=== PATIENT | male | born 2000 | race Caucasian/White ===

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

== ENCOUNTER 2018-05-13 16:02 | Inpatient (IN) | payer MEDICAID, OTHER ==
[~2018-05-13] VITALS: Ht 170.2 cm; Wt 49.9 kg
[~2018-05-13 16:02] MED LIST changes: -BACL10TA PO; +QUET25TA PO
[2018-05-13] MEDS ORDERED: LORazepam 2 MG TABLET PO PRN (16:45)
[2018-05-13] MEDS ORDERED: HALOPERIDOL 5 MG TABLET PO PRN (16:45)
[2018-05-13 17:44] VITALS: BP 128/67
[2018-05-13 17:50] VITALS: BP 123/73
[2018-05-13] MEDS ORDERED: MAG HYDROX/AL HYDROX/SIMETH ES 30 ML SUSPENSION UDCUP PO PRN (18:45)
[2018-05-13] MEDS ORDERED: MAGNESIUM HYDROXIDE SUSPENSION 30 ML UDCUP PO PRN (18:45)
[2018-05-13] MEDS ORDERED: IBUPROFEN 600 MG TABLET PO PRN (18:45)
[2018-05-13] MEDS ORDERED: CloNIDine HCL 0.1 MG TABLET PO PRN (18:45)
[2018-05-13] MEDS ORDERED: ONDANSETRON HCL 4 MG TABLET PO PRN (18:45)
[2018-05-13] MEDS ORDERED: NICOTINE 21 MG/24 HOUR PATCH TD ONE (18:45)
[2018-05-13] MEDS ORDERED: ALBUTEROL SULFATE HFA 90 MCG/PUFF 8 GM INHALER IH PRN (18:45)
[2018-05-13] MEDS ORDERED: PETROLATUM,WHITE 71 GM JELLY TP PRN (18:45)
[2018-05-13] MEDS ORDERED: BACITRACIN 28.4 GM OINTMENT TP PRN (18:45)
[2018-05-13] MEDS ORDERED: BENZOCAINE/MENTHOL LOZENGE MM PRN (18:45)
[2018-05-13] MEDS ORDERED: LOPERAMIDE HCL 2 MG CAPSULE PO PRN (18:45)
[2018-05-13] MEDS ORDERED: ACETAMINOPHEN 325 MG TABLET PO PRN (18:45)
[2018-05-13] MEDS: ZOLPIDEM TARTRATE 10 MG TABLET PO PRN (20:45)
[2018-05-14 05:36] VITALS: BP 128/78
[2018-05-14 08:27] LABS: BASOPHILS % (AUTO) 0.9 % (0.0-2.0); EOSINOPHILS % (AUTO) 4.2 % (1.0-6.0); HEMATOCRIT 44.6 % (41-53); HEMOGLOBIN 15.3 g/dL (13.5-17.5); LYMPHOCYTES # (AUTO) 3.5 K/uL (1.0-4.8); LYMPHOCYTES % (AUTO) 51.9 % (22.0-44.0); MEAN CORPUSCULAR HEMOGLOBIN 32.9 pg (26.0-34.0); MEAN CORPUSCULAR HGB CONC 34.2 G/dL (31.0-37.0); MEAN CORPUSCULAR VOLUME 96 fL (80-100); MONOCYTES # (AUTO) 0.8 K/uL (0.1-1.0); MONOCYTES % (AUTO) 12.1 % (2.0-9.0); NEUTROPHILS # (AUTO) 2.1 K/uL (1.8-7.7); NEUTROPHILS % (AUTO) 30.9 % (40.0-70.0); PLATELET COUNT (AUTO) 324 K/uL (150-450); RED BLOOD CELL COUNT(AUTO) 4.64 MIL/uL (4.50-5.90)
[2018-05-14 08:42] VITALS: BP 119/67
[2018-05-14 08:49] LABS: HEMOGLOBIN A1C 4.8 % (4.5-6.2)
[2018-05-14] MEDS ORDERED: DOCUSATE SODIUM 100 MG CAPSULE PO SCH (09:00)
[2018-05-14] MEDS ORDERED: OMEPRAZOLE 20 MG CAPSULE PO SCH (09:00)
[2018-05-14 09:07] LABS: ALANINE AMINOTRANSFERASE 24 U/L (12-78); ALKALINE PHOSPHATASE 78 U/L (46-116); ANION GAP 9 mmol/L (8-16); ASPARTATE AMINOTRANSFERASE 19 U/L (15-37); BILIRUBIN,TOTAL 0.8 mg/dL (0.1-1.0); CALCIUM, TOTAL 8.9 mg/dL (8.8-10.5); CARBON DIOXIDE 29 mmol/L (22-29); CHLORIDE 104 mmol/L (98-107); CHOLESTEROL 157 mg/dL (131-200); CREATININE 0.74 mg/dL (0.60-1.30); FREE T4 (FREE THYROXINE) 0.97 ng/dL (0.76-1.46); GLOMERULAR FILTR. RATE CALC > 60 mL/min (>60); GLUCOSE,RANDOM 78 mg/dL (70-110); HDL CHOLESTEROL 53 mg/dL (40-60); LDL CHOL (CALC.) 92 mg/dL (0-130); POTASSIUM 4.6 mmol/L (3.5-5.1); SODIUM SERUM 142 mmol/L (136-145); THYROID STIMULATING HORMONE 1.22 uIU/mL (0.36-3.74); TOTAL PROTEIN, SERUM 6.8 g/dL (6.4-8.2); TRIGLYCERIDES 61 mg/dL (15-150); UREA NITROGEN, BLOOD 11 mg/dL (7-18)
[2018-05-14] MEDS: NICOTINE 21 MG/24 HOUR PATCH TD SCH (09:10)
[2018-05-14] MEDS: ARIPiprazole 5 MG TABLET PO SCH (11:16)
[2018-05-14 16:02] VITALS: BP 128/78
[2018-05-14] MEDS ORDERED: DOCUSATE SODIUM 100 MG CAPSULE PO PRN (20:00)
[2018-05-14] MEDS ORDERED: OMEPRAZOLE 20 MG CAPSULE PO PRN (20:00)
[2018-05-14] MEDS: MIRTAZAPINE 15 MG TABLET PO SCH (20:22)
[2018-05-15 01:03] VITALS: BP 110/63
[2018-05-15 08:06] VITALS: BP 113/60
[2018-05-15] MEDS: ARIPiprazole 5 MG TABLET PO SCH (08:49)
[2018-05-15] MEDS: NICOTINE 21 MG/24 HOUR PATCH TD SCH (08:49)
[2018-05-15 16:18] VITALS: BP 112/62
[2018-05-15] MEDS: ZOLPIDEM TARTRATE 10 MG TABLET PO PRN (20:30)
[2018-05-15] MEDS: MIRTAZAPINE 15 MG TABLET PO SCH (20:30)
[2018-05-16 00:53] VITALS: BP 118/76
[2018-05-16 08:11] VITALS: BP 115/66
[2018-05-16] MEDS: ARIPiprazole 5 MG TABLET PO SCH (08:41)
[2018-05-16] MEDS: NICOTINE 21 MG/24 HOUR PATCH TD SCH (08:42)
[2018-05-16] MEDS ORDERED: MIRT15TA6 PO (13:30)
[2018-05-16] MEDS ORDERED: ARIP5TAB19 PO (13:32)
== END 2018-05-16 18:40 | disposition home or self-care (01) | DRG 750 ==
LOC: B2S 16:36
PROVIDERS: ADMIT Psychiatry & Neurology Psychiatry; ATTEND Psychiatry & Neurology Psychiatry
DX: F25.0 Schizoaffective disorder, bipolar type (principal); R45.851 Suicidal ideations; F29 Unspecified psychosis not due to a substance or known physiological condition; F41.9 Anxiety disorder, unspecified; F19.20 Other psychoactive substance dependence, uncomplicated; G47.00 Insomnia, unspecified; K59.00 Constipation, unspecified; F60.3 Borderline personality disorder; Z59.0 Homelessness; Z81.8 Family history of other mental and behavioral disorders; Z91.5 Personal history of self-harm; Z79.899 Other long term (current) drug therapy
CPT/HCPCS: 83036; 84439; 84443; Q0162

== ENCOUNTER 2019-12-04 15:53 | Inpatient (IN) | payer MEDICAID ==
[~2019-12-04] VITALS: Ht 177.8 cm; Wt 47.2 kg
[~2019-12-04 15:53] MED LIST changes: +ARIP5TAB58 PO; +MIRT15TA6 PO; -QUET25TA PO
[2019-12-04] MEDS ORDERED: HALOPERIDOL 5 MG TABLET PO PRN (17:45)
[2019-12-04] MEDS ORDERED: ZOLPIDEM TARTRATE 10 MG TABLET PO PRN (17:45)
[2019-12-04] MEDS ORDERED: LORazepam 2 MG TABLET PO PRN (17:45)
[2019-12-04 17:53] VITALS: BP 121/86
[2019-12-04 19:48] VITALS: BP 121/71
[2019-12-05 00:17] VITALS: BP 110/68
[2019-12-05] MEDS ORDERED: ALBUTEROL SULFATE HFA 90 MCG/PUFF 8 GM INHALER IH PRN (08:15)
[2019-12-05] MEDS ORDERED: GuaiFENesin/D-METHORPHAN [SUGAR-FREE] 200-20MG/10 ML SYRUP UDCUP PO PRN (08:15)
[2019-12-05] MEDS ORDERED: LOPERAMIDE HCL 2 MG CAPSULE PO PRN (08:15)
[2019-12-05] MEDS ORDERED: IBUPROFEN 400 MG TABLET PO PRN (08:15)
[2019-12-05] MEDS ORDERED: CloNIDine HCL 0.1 MG TABLET PO PRN (08:15)
[2019-12-05] MEDS ORDERED: PETROLATUM,WHITE 28 GM JELLY TP PRN (08:15)
[2019-12-05] MEDS ORDERED: ONDANSETRON HCL 4 MG TABLET PO PRN (08:15)
[2019-12-05] MEDS ORDERED: NICOTINE 14 MG/24 HOUR PATCH TD PRN (08:15)
[2019-12-05] MEDS ORDERED: MAG HYDROX/AL HYDROX/SIMETH ES 30 ML SUSPENSION UDCUP PO PRN (08:15)
[2019-12-05] MEDS ORDERED: DOCUSATE SODIUM 100 MG CAPSULE PO PRN (08:15)
[2019-12-05] MEDS ORDERED: ACETAMINOPHEN 325 MG TABLET PO PRN (08:15)
[2019-12-05] MEDS ORDERED: MAGNESIUM HYDROXIDE SUSPENSION 30 ML UDCUP PO PRN (08:15)
[2019-12-05 08:17] LABS: BASOPHILS % (AUTO) 0.8 % (0.0-2.0); HEMOGLOBIN 14.4 g/dL (13.5-17.5); LYMPHOCYTES # (AUTO) 3.3 K/uL (1.0-4.8); LYMPHOCYTES % (AUTO) 62.1 % (22.0-44.0); MEAN CORPUSCULAR HGB CONC 34.2 G/dL (31.0-37.0); MEAN CORPUSCULAR VOLUME 96 fL (80-100); MONOCYTES # (AUTO) 0.7 K/uL (0.1-1.0); NEUTROPHILS % (AUTO) 19.1 % (40.0-70.0); PLATELET COUNT (AUTO) 334 K/uL (150-450); RED BLOOD CELL COUNT(AUTO) 4.37 MIL/uL (4.50-5.90); RED CELL DISTRIBUTION WIDTH 12.8 % (11.5-14.5)
[2019-12-05 08:56] VITALS: BP 102/53
[2019-12-05] MEDS: NICOTINE 21 MG/24 HOUR PATCH TD SCH (08:58)
[2019-12-05] MEDS: BACITRACIN 28.4 GM OINTMENT TP SCH ×2 (08:58→16:14)
[2019-12-05 09:15] LABS: ALANINE AMINOTRANSFERASE 27 U/L (12-78); ALKALINE PHOSPHATASE 67 U/L (46-116); ANION GAP 11 mmol/L (8-16); ASPARTATE AMINOTRANSFERASE 17 U/L (15-37); BILIRUBIN,TOTAL 0.8 mg/dL (0.1-1.0); CALCIUM, TOTAL 8.6 mg/dL (8.8-10.5); CARBON DIOXIDE 24 mmol/L (22-29); CHLORIDE 106 mmol/L (98-107); CHOL/HDL RATIO 2.6 (4.2-7.3); CHOLESTEROL 148 mg/dL (131-200); CREATININE 0.69 mg/dL (0.60-1.30); FREE T4 (FREE THYROXINE) 1.16 ng/dL (0.76-1.46); GLOMERULAR FILTR. RATE CALC > 60 mL/min (>60); GLUCOSE,RANDOM 81 mg/dL (70-110); HDL CHOLESTEROL 56 mg/dL (40-60); LDL CHOL (CALC.) 81 mg/dL (0-130); POTASSIUM 3.9 mmol/L (3.5-5.1); SODIUM SERUM 141 mmol/L (136-145); THYROID STIMULATING HORMONE 0.81 uIU/mL (0.36-3.74); TOTAL PROTEIN, SERUM 6.9 g/dL (6.4-8.2); TRIGLYCERIDES 57 mg/dL (15-150); UREA NITROGEN, BLOOD 14 mg/dL (7-18)
[2019-12-05] MEDS: SERTRALINE HCL 50 MG TABLET PO SCH (12:37)
[2019-12-05 17:53] VITALS: BP 107/71
[2019-12-05] MEDS: QUEtiapine FUMARATE 100 MG TABLET PO SCH (20:10)
[2019-12-06 03:00] VITALS: BP 107/71
[2019-12-06] MEDS: BACITRACIN 28.4 GM OINTMENT TP SCH ×2 (08:39→16:06)
[2019-12-06] MEDS: SERTRALINE HCL 50 MG TABLET PO SCH (08:39)
[2019-12-06] MEDS: NICOTINE 21 MG/24 HOUR PATCH TD SCH ×2 (08:39→08:46)
[2019-12-06 08:40] VITALS: BP 101/58
[2019-12-06 16:11] VITALS: BP 100/61
[2019-12-06] MEDS: QUEtiapine FUMARATE 100 MG TABLET PO SCH (20:21)
[2019-12-07 07:07] VITALS: BP 102/48
[2019-12-07 08:12] VITALS: BP 115/52
[2019-12-07] MEDS: NICOTINE 21 MG/24 HOUR PATCH TD SCH (09:00)
[2019-12-07] MEDS: SERTRALINE HCL 50 MG TABLET PO SCH (09:05)
[2019-12-07] MEDS: BACITRACIN 28.4 GM OINTMENT TP SCH ×2 (09:05→16:11)
[2019-12-07] MEDS: QUEtiapine FUMARATE 100 MG TABLET PO SCH (20:22)
[2019-12-08 05:30] VITALS: BP 100/63
[2019-12-08] MEDS: SERTRALINE HCL 50 MG TABLET PO SCH (08:33)
[2019-12-08] MEDS: NICOTINE 21 MG/24 HOUR PATCH TD SCH (08:35)
[2019-12-08] MEDS: BACITRACIN 28.4 GM OINTMENT TP SCH ×2 (08:55→17:10)
[2019-12-08 09:35] VITALS: BP 100/65
[2019-12-08 17:41] VITALS: BP 118/65
[2019-12-08] MEDS: QUEtiapine FUMARATE 100 MG TABLET PO SCH (21:05)
[2019-12-09 05:55] VITALS: BP 111/60
[2019-12-09] MEDS: BACITRACIN 28.4 GM OINTMENT TP SCH ×2 (09:00→17:09)
[2019-12-09 09:01] VITALS: BP 117/63
[2019-12-09] MEDS: SERTRALINE HCL 50 MG TABLET PO SCH (09:02)
[2019-12-09] MEDS: NICOTINE 21 MG/24 HOUR PATCH TD SCH (09:05)
[2019-12-09 17:14] VITALS: BP 124/60
[2019-12-09] MEDS: QUEtiapine FUMARATE 100 MG TABLET PO SCH (20:09)
[2019-12-10 00:28] VITALS: BP 105/42
[2019-12-10] MEDS: NICOTINE 21 MG/24 HOUR PATCH TD SCH (08:43)
[2019-12-10] MEDS: SERTRALINE HCL 50 MG TABLET PO SCH (08:43)
[2019-12-10] MEDS: BACITRACIN 28.4 GM OINTMENT TP SCH ×2 (08:49→16:48)
[2019-12-10 09:09] VITALS: BP 110/78
[2019-12-10 16:51] VITALS: BP 114/79
[2019-12-10] MEDS: QUEtiapine FUMARATE 100 MG TABLET PO SCH (20:10)
[2019-12-11 01:42] VITALS: BP 103/62
[2019-12-11 08:09] VITALS: BP 111/53
[2019-12-11] MEDS: NICOTINE 21 MG/24 HOUR PATCH TD SCH (08:37)
[2019-12-11] MEDS: BACITRACIN 28.4 GM OINTMENT TP SCH ×2 (08:37→18:53)
[2019-12-11] MEDS: SERTRALINE HCL 50 MG TABLET PO SCH (08:37)
[2019-12-11 16:48] VITALS: BP 107/59
[2019-12-11] MEDS: QUEtiapine FUMARATE 100 MG TABLET PO SCH (20:20)
[2019-12-12] VITALS: BP 114/46
[2019-12-12 08:11] VITALS: BP 132/71
[2019-12-12] MEDS: SERTRALINE HCL 50 MG TABLET PO SCH (08:27)
[2019-12-12] MEDS: NICOTINE 21 MG/24 HOUR PATCH TD SCH (08:27)
[2019-12-12] MEDS: BACITRACIN 28.4 GM OINTMENT TP SCH ×2 (08:27→16:14)
[2019-12-12 17:59] VITALS: BP 135/81
[2019-12-12] MEDS: QUEtiapine FUMARATE 100 MG TABLET PO SCH (20:13)
[2019-12-13 06:06] VITALS: BP 130/79
[2019-12-13 08:29] VITALS: BP 130/65
[2019-12-13] MEDS: SERTRALINE HCL 50 MG TABLET PO SCH (08:42)
[2019-12-13] MEDS: BACITRACIN 28.4 GM OINTMENT TP SCH (08:43)
[2019-12-13] MEDS: NICOTINE 21 MG/24 HOUR PATCH TD SCH (08:43)
[2019-12-13] MEDS ORDERED: QUET100T33 PO (11:23)
[2019-12-13] MEDS ORDERED: SERT50TA12 PO (11:23)
== END 2019-12-13 13:30 | disposition home or self-care (01) | DRG 750 ==
LOC: B2S 17:57
PROVIDERS: ADMIT Psychiatry & Neurology Child & Adolescent Psychiatry; ATTEND Psychiatry & Neurology Child & Adolescent Psychiatry
DX: F25.1 Schizoaffective disorder, depressive type (principal); I95.9 Hypotension, unspecified; R45.851 Suicidal ideations; F10.10 Alcohol abuse, uncomplicated; F15.10 Other stimulant abuse, uncomplicated; F41.9 Anxiety disorder, unspecified; X58.XXXA Exposure to other specified factors, initial encounter; G47.00 Insomnia, unspecified; K59.00 Constipation, unspecified; S00.81XA Abrasion of other part of head, initial encounter; Z79.899 Other long term (current) drug therapy; Z59.0 Homelessness; Z87.891 Personal history of nicotine dependence; Z90.5 Acquired absence of kidney; Y93.89 Activity, other specified; Y92.89 Other specified places as the place of occurrence of the external cause; Y99.8 Other external cause status
CPT/HCPCS: 84439; 84443

== ENCOUNTER 2020-02-05 16:24 | Inpatient (IN) | payer MEDICAID ==
[~2020-02-05] VITALS: Ht 167.6 cm; Wt 49.9 kg
[~2020-02-05 16:24] MED LIST changes: -ARIP5TAB58 PO; -MIRT15TA6 PO; +QUET100T33 PO; +SERT50TA12 PO
[2020-02-05] MEDS ORDERED: SERT50TA12 PO (16:30)
[2020-02-05] MEDS ORDERED: QUET100T PO (16:30)
[2020-02-05] MEDS ORDERED: OLANZapine 5 MG RAPDIS TABLET PO PRN (17:15)
[2020-02-05] MEDS ORDERED: LORazepam 2 MG TABLET PO PRN (17:15)
[2020-02-05] MEDS ORDERED: MAG HYDROX/AL HYDROX/SIMETH ES 30 ML SUSPENSION UDCUP PO PRN (17:15)
[2020-02-05] MEDS ORDERED: PROMETHAZINE HCL 25 MG TABLET PO PRN (17:15)
[2020-02-05] MEDS ORDERED: LOPERAMIDE HCL 2 MG CAPSULE PO PRN (17:15)
[2020-02-05] MEDS ORDERED: ACETAMINOPHEN 325 MG TABLET PO PRN (17:15)
[2020-02-05] MEDS ORDERED: GuaiFENesin/D-METHORPHAN [SUGAR-FREE] 200-20MG/10 ML SYRUP UDCUP PO PRN (17:15)
[2020-02-05] MEDS ORDERED: HydrOXYzine PAMOATE 50 MG CAPSULE PO PRN (17:15)
[2020-02-05] MEDS ORDERED: MAGNESIUM HYDROXIDE SUSPENSION 30 ML UDCUP PO PRN (17:15)
[2020-02-05] MEDS ORDERED: TUBERCULIN, PURIFIED PROTEIN DERIVATIVE 5 TU/0.1 ML SYRINGE ID ONE (17:15)
[2020-02-05 17:39] VITALS: BP 125/78
[2020-02-05] MEDS: THIAMINE 100 MG TABLET PO SCH (18:10)
[2020-02-05] MEDS: ZOLPIDEM TARTRATE 10 MG TABLET PO PRN (20:11)
[2020-02-05] MEDS: OLANZapine 5 MG RAPDIS TABLET PO SCH (20:11)
[2020-02-06 03:56] VITALS: BP 120/76
[2020-02-06 07:55] LABS: BASOPHILS % (AUTO) 0.9 % (0.0-2.0); EOSINOPHILS % (AUTO) 2.7 % (1.0-6.0); HEMATOCRIT 44.5 % (41-53); HEMOGLOBIN 14.7 g/dL (13.5-17.5); LYMPHOCYTES # (AUTO) 2.9 K/uL (1.0-4.8); LYMPHOCYTES % (AUTO) 57.6 % (22.0-44.0); MEAN CORPUSCULAR HEMOGLOBIN 31.6 pg (26.0-34.0); MEAN CORPUSCULAR VOLUME 96 fL (80-100); MONOCYTES # (AUTO) 0.4 K/uL (0.1-1.0); MONOCYTES % (AUTO) 8.5 % (2.0-9.0); NEUTROPHILS # (AUTO) 1.5 K/uL (1.8-7.7); NEUTROPHILS % (AUTO) 30.3 % (40.0-70.0); PLATELET COUNT (AUTO) 365 K/uL (150-450); RED BLOOD CELL COUNT(AUTO) 4.64 MIL/uL (4.50-5.90); RED CELL DISTRIBUTION WIDTH 12.7 % (11.5-14.5)
[2020-02-06 08:16] LABS: ALANINE AMINOTRANSFERASE 28 U/L (12-78); ALBUMIN 3.7 g/dL (3.4-5.0); ALKALINE PHOSPHATASE 67 U/L (46-116); ANION GAP 10 mmol/L (8-16); ASPARTATE AMINOTRANSFERASE 13 U/L (15-37); BILIRUBIN,TOTAL 0.2 mg/dL (0.1-1.0); CALCIUM, TOTAL 8.8 mg/dL (8.8-10.5); CARBON DIOXIDE 26 mmol/L (22-29); CHLORIDE 107 mmol/L (98-107); CHOL/HDL RATIO 2.7 (4.2-7.3); CHOLESTEROL 151 mg/dL (131-200); CREATININE 0.63 mg/dL (0.60-1.30); FREE T4 (FREE THYROXINE) 1.13 ng/dL (0.76-1.46); GLOMERULAR FILTR. RATE CALC > 60 mL/min (>60); GLUCOSE,RANDOM 93 mg/dL (70-110); HCG,QUANTITATIVE < 1 mIU/mL (0-6); HDL CHOLESTEROL 56 mg/dL (40-60); LDL CHOL (CALC.) 82 mg/dL (0-130); POTASSIUM 3.8 mmol/L (3.5-5.1); SODIUM SERUM 143 mmol/L (136-145); THYROID STIMULATING HORMONE 2.14 uIU/mL (0.36-3.74); TRIGLYCERIDES 66 mg/dL (15-150); UREA NITROGEN, BLOOD 14 mg/dL (7-18)
[2020-02-06 08:23] LABS: HEMOGLOBIN A1C 4.9 % (3.8-5.6)
[2020-02-06] MEDS: FLUoxetine HCL 20 MG CAPSULE PO SCH (08:34)
[2020-02-06] MEDS: NALTREXONE HCL 50 MG TABLET PO SCH (08:34)
[2020-02-06] MEDS: THIAMINE 100 MG TABLET PO SCH ×2 (08:34→16:17)
[2020-02-06] MEDS: FOLIC ACID 1 MG TABLET PO SCH (08:34)
[2020-02-06] MEDS: MULTIVITAMINS WITH MINERALS, THERAPEUTIC TABLET PO SCH (08:34)
[2020-02-06 08:48] VITALS: BP 126/59
[2020-02-06 16:11] VITALS: BP 122/70
[2020-02-06] MEDS: OLANZapine 5 MG RAPDIS TABLET PO SCH (20:17)
[2020-02-07 00:34] VITALS: BP 124/72
[2020-02-07] MEDS: FOLIC ACID 1 MG TABLET PO SCH (08:50)
[2020-02-07] MEDS: MULTIVITAMINS WITH MINERALS, THERAPEUTIC TABLET PO SCH (08:50)
[2020-02-07] MEDS: FLUoxetine HCL 20 MG CAPSULE PO SCH (08:50)
[2020-02-07] MEDS: THIAMINE 100 MG TABLET PO SCH ×2 (08:50→16:14)
[2020-02-07] MEDS: NALTREXONE HCL 50 MG TABLET PO SCH (08:50)
[2020-02-07 09:49] VITALS: BP 106/44
[2020-02-07 18:35] VITALS: BP 119/73
[2020-02-07] MEDS: OLANZapine 5 MG RAPDIS TABLET PO SCH (20:51)
[2020-02-08 04:38] VITALS: BP 116/70
[2020-02-08 08:11] VITALS: BP 113/60
[2020-02-08] MEDS: FOLIC ACID 1 MG TABLET PO SCH (08:50)
[2020-02-08] MEDS: THIAMINE 100 MG TABLET PO SCH ×2 (08:50→16:30)
[2020-02-08] MEDS: MULTIVITAMINS WITH MINERALS, THERAPEUTIC TABLET PO SCH (08:50)
[2020-02-08] MEDS: NALTREXONE HCL 50 MG TABLET PO SCH (08:51)
[2020-02-08] MEDS: FLUoxetine HCL 20 MG CAPSULE PO SCH (08:51)
[2020-02-08 16:11] VITALS: BP 117/72
[2020-02-08] MEDS: ZOLPIDEM TARTRATE 10 MG TABLET PO PRN (20:34)
[2020-02-08] MEDS: OLANZapine 5 MG RAPDIS TABLET PO SCH (20:34)
[2020-02-09 05:41] VITALS: BP 103/60
[2020-02-09 08:14] VITALS: BP 114/69
[2020-02-09] MEDS: FLUoxetine HCL 20 MG CAPSULE PO SCH (09:29)
[2020-02-09] MEDS: THIAMINE 100 MG TABLET PO SCH ×2 (09:29→16:42)
[2020-02-09] MEDS: FOLIC ACID 1 MG TABLET PO SCH (09:29)
[2020-02-09] MEDS: MULTIVITAMINS WITH MINERALS, THERAPEUTIC TABLET PO SCH (09:29)
[2020-02-09] MEDS: NALTREXONE HCL 50 MG TABLET PO SCH (09:29)
[2020-02-09] MEDS ORDERED: NALT50TA PO (13:41)
[2020-02-09] MEDS ORDERED: FLUO-191 PO (13:41)
[2020-02-09] MEDS ORDERED: OLAN5TAB30 PO (13:41)
[2020-02-09] MEDS ORDERED: OLAN10TA22 PO (16:13)
[2020-02-09 16:14] VITALS: BP 113/66
[2020-02-09] MEDS ORDERED: LORazepam 0.5 MG TABLET PO PRN (17:15)
[2020-02-09] MEDS ORDERED: OLANZapine 10 MG RAPDIS TABLET PO SCH (21:00)
[2020-02-10 06:01] VITALS: BP 116/65
[2020-02-10] MEDS: MULTIVITAMINS WITH MINERALS, THERAPEUTIC TABLET PO SCH (07:57)
[2020-02-10] MEDS: FLUoxetine HCL 20 MG CAPSULE PO SCH (07:57)
[2020-02-10] MEDS: THIAMINE 100 MG TABLET PO SCH (07:57)
[2020-02-10] MEDS: NALTREXONE HCL 50 MG TABLET PO SCH (07:57)
[2020-02-10] MEDS: FOLIC ACID 1 MG TABLET PO SCH (07:57)
[2020-02-10 08:29] VITALS: BP 116/67
== END 2020-02-10 11:20 | disposition home or self-care (01) | DRG 885 ==
LOC: B3A 17:40
PROVIDERS: ADMIT Psychiatry & Neurology Psychiatry; ATTEND Psychiatry & Neurology Psychiatry
DX: F20.9 Schizophrenia, unspecified (principal); Z87.891 Personal history of nicotine dependence; Z91.14 Patient's other noncompliance with medication regimen; Z79.899 Other long term (current) drug therapy
CPT/HCPCS: 83036; 84439; 84443; 86592

== ENCOUNTER 2020-11-22 03:46 | Inpatient (IN) | payer MEDICAID ==
[~2020-11-22] VITALS: Ht 175.3 cm; Wt 61.4 kg
[~2020-11-22 03:46] MED LIST changes: +FLUO-191 PO; +NALT50TA PO; +OLAN10TA22 PO; -QUET100T33 PO; -SERT50TA12 PO
[2020-11-22 04:25] LABS: BASOPHILS % (AUTO) 0.7 % (0.0-2.0); EOSINOPHILS % (AUTO) 0.1 % (1.0-6.0); HEMATOCRIT 44.9 % (41-53); HEMOGLOBIN 15.2 g/dL (13.5-17.5); LYMPHOCYTES % (AUTO) 25.3 % (22.0-44.0); MEAN CORPUSCULAR HGB CONC 33.7 G/dL (31.0-37.0); MEAN CORPUSCULAR VOLUME 95 fL (80-100); MONOCYTES # (AUTO) 0.7 K/uL (0.1-1.0); MONOCYTES % (AUTO) 8.3 % (2.0-9.0); NEUTROPHILS # (AUTO) 5.2 K/uL (1.8-7.7); NEUTROPHILS % (AUTO) 65.6 % (40.0-70.0); PLATELET COUNT (AUTO) 358 K/uL (150-450); RED BLOOD CELL COUNT(AUTO) 4.73 MIL/uL (4.50-5.90); RED CELL DISTRIBUTION WIDTH 12.6 % (11.5-14.5)
[2020-11-22 04:33] LABS: ANION GAP 11 mmol/L (8-16); CALCIUM, TOTAL 9.2 mg/dL (8.8-10.5); CARBON DIOXIDE 27 mmol/L (22-29); CHLORIDE 104 mmol/L (98-107); CREATININE 0.76 mg/dL (0.60-1.30); GLOMERULAR FILTR. RATE CALC > 60 mL/min (>60); GLUCOSE,RANDOM 94 mg/dL (70-110); POTASSIUM 3.6 mmol/L (3.5-5.1); SODIUM SERUM 142 mmol/L (136-145); UREA NITROGEN, BLOOD 13 mg/dL (7-18)
[2020-11-22 04:39] LABS: ALANINE AMINOTRANSFERASE 48 U/L (12-78); ALBUMIN 4.6 g/dL (3.4-5.0); ALKALINE PHOSPHATASE 82 U/L (46-116); ASPARTATE AMINOTRANSFERASE 26 U/L (15-37); BILIRUBIN,TOTAL 0.5 mg/dL (0.1-1.0); TOTAL PROTEIN, SERUM 7.5 g/dL (6.4-8.2)
[2020-11-22 06:54] LABS: COVID AG,FIA SOURCE NASOPHARYNGEAL
[2020-11-22 08:12] LABS: AMPHET/METH SCREEN,URINE POSITIVE (NEGATIVE); BARBITURATE SCREEN, URINE NEGATIVE (NEGATIVE); BENZODIAZEPINES SCREEN,URINE NEGATIVE (NEGATIVE); CANNABINOID SCREEN,URINE NEGATIVE (NEGATIVE); COCAINE SCREEN,URINE NEGATIVE (NEGATIVE); METHADONE SCREEN, URINE NEGATIVE (NEGATIVE); OPIATE SCREEN,URINE NEGATIVE (NEGATIVE)
[2020-11-22 08:20] LABS: PHENCYCLIDINE SCREEN,URINE NEGATIVE (NEGATIVE)
[2020-11-22] MEDS ORDERED: ZOLPIDEM TARTRATE 10 MG TABLET PO PRN (08:45)
[2020-11-22] MEDS ORDERED: LORazepam 2 MG TABLET PO PRN (08:45)
[2020-11-22] MEDS ORDERED: HydrOXYzine PAMOATE 50 MG CAPSULE PO PRN (08:45)
[2020-11-22] MEDS ORDERED: PROMETHAZINE HCL 25 MG TABLET PO PRN (08:45)
[2020-11-22] MEDS ORDERED: LOPERAMIDE HCL 2 MG CAPSULE PO PRN (08:45)
[2020-11-22] MEDS ORDERED: MAG HYDROX/AL HYDROX/SIMETH ES 30 ML SUSPENSION UDCUP PO PRN (08:45)
[2020-11-22] MEDS ORDERED: GuaiFENesin/D-METHORPHAN [SUGAR-FREE] 200-20MG/10 ML SYRUP UDCUP PO PRN (08:45)
[2020-11-22] MEDS ORDERED: OLANZapine 5 MG RAPDIS TABLET PO PRN (08:45)
[2020-11-22] MEDS ORDERED: ACETAMINOPHEN 325 MG TABLET PO PRN (08:45)
[2020-11-22] MEDS ORDERED: MAGNESIUM HYDROXIDE SUSPENSION 30 ML UDCUP PO PRN (08:45)
[2020-11-22] MEDS ORDERED: FLUoxetine HCL 20 MG CAPSULE PO SCH (12:30)
[2020-11-22] MEDS: OMEGA-3/DHA/EPA/FISH OIL 1,000 MG CAPSULE PO SCH (12:56)
[2020-11-22] MEDS: FOLIC ACID 1 MG TABLET PO SCH (12:56)
[2020-11-22] MEDS: MULTIVITAMINS WITH MINERALS, THERAPEUTIC TABLET PO SCH (12:57)
[2020-11-22] MEDS: NALTREXONE HCL 50 MG TABLET PO SCH (12:57)
[2020-11-22] MEDS: THIAMINE 100 MG TABLET PO SCH ×2 (12:57→17:15)
[2020-11-22] MEDS ORDERED: LORazepam 2 MG/ML VIAL ONE (13:58)
[2020-11-22] MEDS ORDERED: DiphenhydrAMINE HCL 50 MG/ML VIAL ONE (13:59)
[2020-11-22] MEDS ORDERED: DiphenhydrAMINE HCL 50 MG/ML VIAL IM ONE (14:00)
[2020-11-22] MEDS ORDERED: HALOPERIDOL LACTATE 5 MG/ML VIAL IM ONE (14:00)
[2020-11-22] MEDS ORDERED: LORazepam 2 MG/ML VIAL IM ONE (14:00)
[2020-11-22] MEDS: OLANZapine 5 MG RAPDIS TABLET PO SCH ×2 (21:00→21:22)
[2020-11-22] MEDS: MELATONIN 5 MG TABLET PO SCH ×2 (21:00→21:22)
[2020-11-22 21:20] VITALS: BP 101/60
[2020-11-23 04:02] VITALS: BP 110/62
[2020-11-23] MEDS: THIAMINE 100 MG TABLET PO SCH ×2 (08:48→16:16)
[2020-11-23] MEDS: MULTIVITAMINS WITH MINERALS, THERAPEUTIC TABLET PO SCH (08:48)
[2020-11-23] MEDS: NALTREXONE HCL 50 MG TABLET PO SCH (08:48)
[2020-11-23] MEDS: FOLIC ACID 1 MG TABLET PO SCH (08:49)
[2020-11-23] MEDS: OMEGA-3/DHA/EPA/FISH OIL 1,000 MG CAPSULE PO SCH (08:49)
[2020-11-23 16:14] VITALS: BP 107/64
[2020-11-23] MEDS: OLANZapine 10 MG RAPDIS TABLET PO SCH (21:00)
[2020-11-23] MEDS: MELATONIN 5 MG TABLET PO SCH (21:01)
[2020-11-24 05:42] VITALS: BP 121/65
[2020-11-24] MEDS: FOLIC ACID 1 MG TABLET PO SCH (09:00)
[2020-11-24] MEDS: OMEGA-3/DHA/EPA/FISH OIL 1,000 MG CAPSULE PO SCH (09:00)
[2020-11-24] MEDS: MULTIVITAMINS WITH MINERALS, THERAPEUTIC TABLET PO SCH (09:00)
[2020-11-24] MEDS: THIAMINE 100 MG TABLET PO SCH ×2 (09:00→16:54)
[2020-11-24] MEDS: NALTREXONE HCL 50 MG TABLET PO SCH (09:00)
[2020-11-24 18:02] VITALS: BP 127/77
[2020-11-24] MEDS: OLANZapine 10 MG RAPDIS TABLET PO SCH (21:00)
[2020-11-24] MEDS: MELATONIN 5 MG TABLET PO SCH (21:00)
[2020-11-25 03:46] VITALS: BP 125/80
[2020-11-25 08:26] VITALS: BP 117/73
[2020-11-25] MEDS: THIAMINE 100 MG TABLET PO SCH ×2 (09:00→16:08)
[2020-11-25] MEDS: MULTIVITAMINS WITH MINERALS, THERAPEUTIC TABLET PO SCH (09:00)
[2020-11-25] MEDS: NALTREXONE HCL 50 MG TABLET PO SCH (09:00)
[2020-11-25] MEDS: FOLIC ACID 1 MG TABLET PO SCH (09:00)
[2020-11-25] MEDS: OMEGA-3/DHA/EPA/FISH OIL 1,000 MG CAPSULE PO SCH (09:00)
[2020-11-25] MEDS ORDERED: PALIPERIDONE PALMITATE 234 MG/1.5 ML SYRINGE IM ONE (13:15)
[2020-11-25] MEDS ORDERED: MELA5TAB3 PO (13:19)
[2020-11-25] MEDS ORDERED: NALT50TA PO (13:19)
[2020-11-25] MEDS ORDERED: PALI156D IM (13:19)
[2020-11-25] MEDS ORDERED: OMEG-135 PO (13:19)
[2020-11-25 16:31] VITALS: BP 114/68
[2020-11-29] MEDS ORDERED: PALIPERIDONE PALMITATE 156 MG/ML SYRINGE IM ONE (09:00)
== END 2020-11-25 18:20 | disposition home or self-care (01) | DRG 750 ==
LOC: EMS 03:47 → B2S 12:10 → B3A 13:30
PROVIDERS: ADMIT Psychiatry & Neurology Psychiatry; ATTEND Psychiatry & Neurology Psychiatry
DX: F25.9 Schizoaffective disorder, unspecified (principal); R45.851 Suicidal ideations; Z91.14 Patient's other noncompliance with medication regimen; F17.210 Nicotine dependence, cigarettes, uncomplicated; Z91.19 Patient's noncompliance with other medical treatment and regimen; J45.909 Unspecified asthma, uncomplicated; F19.10 Other psychoactive substance abuse, uncomplicated; F31.9 Bipolar disorder, unspecified; F12.90 Cannabis use, unspecified, uncomplicated; F15.90 Other stimulant use, unspecified, uncomplicated; Z91.5 Personal history of self-harm; Z20.822 Contact with and (suspected) exposure to COVID-19
CPT/HCPCS: 80053; 85025; 87426; 99285; A9575; G0480; J1200; J1630; J2060

== ENCOUNTER 2023-03-19 12:31 | Inpatient (IN) | payer MEDICAID, OTHER ==
[~2023-03-19] VITALS: Ht 170.2 cm; Wt 51.0 kg
[~2023-03-19 12:31] MED LIST changes: +ACET-784 PO; +FAMO20 PO; -FLUO-191 PO; +MAGN-169 PO; -NALT50TA PO; -OLAN10TA22 PO
[2023-03-19 12:53] LABS: BASOPHILS % (AUTO) 0.7 % (0.0-2.0); EOSINOPHILS % (AUTO) 0.3 % (1.0-6.0); HEMATOCRIT 37.6 % (41-53); HEMOGLOBIN 12.7 g/dL (13.5-17.5); LYMPHOCYTES # (AUTO) 1.3 K/uL (1.0-4.8); LYMPHOCYTES % (AUTO) 11.4 % (22.0-44.0); MEAN CORPUSCULAR HGB CONC 33.9 G/dL (31.0-37.0); MEAN CORPUSCULAR VOLUME 95 fL (80-100); MONOCYTES # (AUTO) 1.2 K/uL (0.1-1.0); MONOCYTES % (AUTO) 10.8 % (2.0-9.0); NEUTROPHILS # (AUTO) 8.8 K/uL (1.8-7.7); NEUTROPHILS % (AUTO) 76.8 % (40.0-70.0); PLATELET COUNT (AUTO) 321 K/uL (150-450); RED BLOOD CELL COUNT(AUTO) 3.98 MIL/uL (4.50-5.90); RED CELL DISTRIBUTION WIDTH 13.8 % (11.5-14.5); WHITE BLOOD COUNT (AUTO) 11.4 K/uL (4.5-11.0)
[2023-03-19 13:06] LABS: ANION GAP 12 mmol/L (8-16); CALCIUM, TOTAL 8.1 mg/dL (8.8-10.5); CARBON DIOXIDE 24 mmol/L (22-29); CHLORIDE 107 mmol/L (98-107); CREATININE 0.92 mg/dL (0.60-1.30); GLOMERULAR FILTR. RATE CALC > 60 mL/min (>60); GLUCOSE,RANDOM 100 mg/dL (70-110); POTASSIUM 3.2 mmol/L (3.5-5.1); SODIUM SERUM 143 mmol/L (136-145); UREA NITROGEN, BLOOD 15 mg/dL (7-18)
[2023-03-19 13:12] LABS: ALANINE AMINOTRANSFERASE 39 U/L (12-78); ALBUMIN 3.5 g/dL (3.4-5.0); ALKALINE PHOSPHATASE 75 U/L (46-116); ASPARTATE AMINOTRANSFERASE 46 U/L (15-37); BILIRUBIN,TOTAL 0.5 mg/dL (0.1-1.0); TOTAL PROTEIN, SERUM 6.7 g/dL (6.4-8.2)
[2023-03-19 13:17] LABS: ALCOHOL, BLOOD (SERUM) < 3 mg/dL (0-10)
[2023-03-19] MEDS ORDERED: POTASSIUM CHLORIDE 20 MEQ ER TABLET PO ONE (13:30)
[2023-03-19] MEDS ORDERED: LORazepam 1 MG TABLET PO ONE (13:30)
[2023-03-19 13:34] LABS: COVID AG,FIA SOURCE NASOPHARYNGEAL
[2023-03-19] MEDS ORDERED: OLANZapine 5 MG RAPDIS TABLET PO PRN (13:45)
[2023-03-19] MEDS ORDERED: LORazepam 2 MG TABLET PO PRN (13:45)
[2023-03-19] MEDS ORDERED: ZOLPIDEM TARTRATE 10 MG TABLET PO PRN (13:45)
[2023-03-19 14:04] LABS: SARS-COV2 (COVID) ANTIGEN,FIA Negative (Negative)
[2023-03-19 18:06] VITALS: BP 105/59; PULSE 73; RESP 19; TEMP 98.5; O2SAT 98
[2023-03-19 21:29] VITALS: RESP 18
[2023-03-19] MEDS ORDERED: MAG HYDROX/AL HYDROX/SIMETH ES 30 ML SUSPENSION UDCUP PO PRN (22:15)
[2023-03-19] MEDS ORDERED: GuaiFENesin/D-METHORPHAN [SUGAR-FREE] 200-20MG/10 ML SYRUP UDCUP PO PRN (22:15)
[2023-03-19] MEDS ORDERED: PROMETHAZINE HCL 25 MG TABLET PO PRN (22:15)
[2023-03-19] MEDS ORDERED: ACETAMINOPHEN 325 MG TABLET PO PRN (22:15)
[2023-03-19] MEDS ORDERED: LOPERAMIDE HCL 2 MG CAPSULE PO PRN (22:15)
[2023-03-19] MEDS ORDERED: MAGNESIUM HYDROXIDE SUSPENSION 30 ML UDCUP PO PRN (22:15)
[2023-03-19] MEDS ORDERED: TUBERCULIN, PURIFIED PROTEIN DERIVATIVE 5 TU/0.1 ML SYRINGE ID ONE (22:15)
[2023-03-19] MEDS ORDERED: HydrOXYzine PAMOATE 50 MG CAPSULE PO PRN (22:15)
[2023-03-20 08:00] VITALS: BP 124/81; PULSE 82; RESP 19; TEMP 98.5; O2SAT 96
[2023-03-20 08:43] LABS: HEMOGLOBIN A1C 4.8 % (3.8-5.6)
[2023-03-20 08:53] LABS: CHOL/HDL RATIO 2.3 (4.2-7.3); FREE T4 (FREE THYROXINE) 1.06 ng/dL (0.76-1.46); THYROID STIMULATING HORMONE 0.28 uIU/mL (0.36-3.74)
[2023-03-20] MEDS ORDERED: PALIPERIDONE PALMITATE 234 MG/1.5 ML SYRINGE IM ONE (09:00)
[2023-03-20] MEDS: FOLIC ACID 1 MG TABLET PO SCH (12:50)
[2023-03-20] MEDS: THIAMINE 100 MG TABLET PO SCH ×2 (12:50→17:14)
[2023-03-20] MEDS: NALTREXONE HCL 50 MG TABLET PO SCH (12:50)
[2023-03-20] MEDS: OMEGA-3/DHA/EPA/FISH OIL 1,000 MG CAPSULE PO SCH (12:50)
[2023-03-20] MEDS: OLANZapine 5 MG RAPDIS TABLET PO SCH ×3 (12:51→17:14)
[2023-03-20] MEDS: MULTIVITAMINS WITH MINERALS, THERAPEUTIC TABLET PO SCH (12:52)
[2023-03-20] MEDS: MELATONIN 5 MG TABLET PO SCH (20:58)
[2023-03-20] MEDS: DIVALPROEX SODIUM 500 MG ER TABLET PO SCH (20:58)
[2023-03-20 21:56] VITALS: BP 107/69; PULSE 68; RESP 18; TEMP 98.7; O2SAT 96
[2023-03-21 08:16] VITALS: BP 109/76; PULSE 98; RESP 17; TEMP 98; O2SAT 97
[2023-03-21] MEDS: OMEGA-3/DHA/EPA/FISH OIL 1,000 MG CAPSULE PO SCH (08:30)
[2023-03-21] MEDS: NALTREXONE HCL 50 MG TABLET PO SCH (08:30)
[2023-03-21] MEDS: THIAMINE 100 MG TABLET PO SCH ×2 (08:30→17:12)
[2023-03-21] MEDS: FOLIC ACID 1 MG TABLET PO SCH (08:31)
[2023-03-21] MEDS: MULTIVITAMINS WITH MINERALS, THERAPEUTIC TABLET PO SCH (08:31)
[2023-03-21] MEDS: OLANZapine 5 MG RAPDIS TABLET PO SCH ×3 (08:32→17:12)
[2023-03-21] MEDS: DIVALPROEX SODIUM 500 MG ER TABLET PO SCH (21:11)
[2023-03-21] MEDS: MELATONIN 5 MG TABLET PO SCH (21:11)
[2023-03-21 21:46] VITALS: BP 123/81; PULSE 76; RESP 18; TEMP 98.1; O2SAT 98
[2023-03-22] MEDS: OMEGA-3/DHA/EPA/FISH OIL 1,000 MG CAPSULE PO SCH (09:11)
[2023-03-22 09:41] VITALS: BP 114/73; PULSE 96; RESP 18; TEMP 97.8; O2SAT 99
[2023-03-22] MEDS: OLANZapine 5 MG RAPDIS TABLET PO SCH ×2 (09:53→14:03)
[2023-03-22] MEDS: FOLIC ACID 1 MG TABLET PO SCH (09:53)
[2023-03-22] MEDS: FLUoxetine HCL 20 MG CAPSULE PO SCH (09:53)
[2023-03-22] MEDS: NALTREXONE HCL 50 MG TABLET PO SCH (09:53)
[2023-03-22] MEDS: THIAMINE 100 MG TABLET PO SCH ×2 (09:54→16:20)
[2023-03-22] MEDS: MULTIVITAMINS WITH MINERALS, THERAPEUTIC TABLET PO SCH (09:54)
[2023-03-22] MEDS: DIVALPROEX SODIUM 500 MG ER TABLET PO SCH (20:59)
[2023-03-22] MEDS: MELATONIN 5 MG TABLET PO SCH (20:59)
[2023-03-22] MEDS: OLANZapine 10 MG RAPDIS TABLET PO SCH (21:00)
[2023-03-22 21:51] VITALS: BP 123/62; PULSE 68; RESP 16; TEMP 98; O2SAT 95
[2023-03-23] MEDS: MULTIVITAMINS WITH MINERALS, THERAPEUTIC TABLET PO SCH (08:33)
[2023-03-23] MEDS: THIAMINE 100 MG TABLET PO SCH ×2 (08:33→16:08)
[2023-03-23] MEDS: OMEGA-3/DHA/EPA/FISH OIL 1,000 MG CAPSULE PO SCH (08:33)
[2023-03-23] MEDS: NALTREXONE HCL 50 MG TABLET PO SCH (08:33)
[2023-03-23] MEDS: FLUoxetine HCL 20 MG CAPSULE PO SCH (08:33)
[2023-03-23] MEDS: FOLIC ACID 1 MG TABLET PO SCH (08:33)
[2023-03-23 10:45] VITALS: BP 112/61; PULSE 86; RESP 18; TEMP 97.1; O2SAT 97
[2023-03-23] MEDS: OLANZapine 10 MG RAPDIS TABLET PO SCH (20:59)
[2023-03-23] MEDS: DIVALPROEX SODIUM 500 MG ER TABLET PO SCH (21:00)
[2023-03-23] MEDS: MELATONIN 5 MG TABLET PO SCH (21:00)
[2023-03-23 21:45] VITALS: RESP 18
[2023-03-24] MEDS: OMEGA-3/DHA/EPA/FISH OIL 1,000 MG CAPSULE PO SCH (08:40)
[2023-03-24] MEDS: MULTIVITAMINS WITH MINERALS, THERAPEUTIC TABLET PO SCH (08:40)
[2023-03-24] MEDS: FOLIC ACID 1 MG TABLET PO SCH (08:41)
[2023-03-24] MEDS: FLUoxetine HCL 20 MG CAPSULE PO SCH (08:41)
[2023-03-24] MEDS: THIAMINE 100 MG TABLET PO SCH ×2 (08:41→16:16)
[2023-03-24] MEDS: NALTREXONE HCL 50 MG TABLET PO SCH (08:41)
[2023-03-24] MEDS ORDERED: PALIPERIDONE PALMITATE 156 MG/ML SYRINGE IM ONE (09:00)
[2023-03-24 09:32] VITALS: BP 109/71; PULSE 90; RESP 18; TEMP 96.9; O2SAT 97
[2023-03-24] MEDS: MELATONIN 5 MG TABLET PO SCH (20:46)
[2023-03-24] MEDS: OLANZapine 10 MG RAPDIS TABLET PO SCH (20:46)
[2023-03-24] MEDS: DIVALPROEX SODIUM 500 MG ER TABLET PO SCH (20:46)
[2023-03-24 22:03] VITALS: BP 107/60; PULSE 87; RESP 18; TEMP 98.4; O2SAT 97
[2023-03-25 08:20] VITALS: BP 114/69; PULSE 83; RESP 18; TEMP 97.3; O2SAT 97
[2023-03-25] MEDS: THIAMINE 100 MG TABLET PO SCH ×2 (09:18→16:40)
[2023-03-25] MEDS: MULTIVITAMINS WITH MINERALS, THERAPEUTIC TABLET PO SCH (09:18)
[2023-03-25] MEDS: FLUoxetine HCL 20 MG CAPSULE PO SCH (09:18)
[2023-03-25] MEDS: OMEGA-3/DHA/EPA/FISH OIL 1,000 MG CAPSULE PO SCH (09:18)
[2023-03-25] MEDS: FOLIC ACID 1 MG TABLET PO SCH (09:18)
[2023-03-25] MEDS: NALTREXONE HCL 50 MG TABLET PO SCH (09:18)
[2023-03-25] MEDS: MELATONIN 5 MG TABLET PO SCH (20:18)
[2023-03-25] MEDS: OLANZapine 10 MG RAPDIS TABLET PO SCH (20:18)
[2023-03-25] MEDS: DIVALPROEX SODIUM 500 MG ER TABLET PO SCH (20:18)
[2023-03-25 21:43] VITALS: BP 128/71; PULSE 86; RESP 18; TEMP 97.1; O2SAT 98
[2023-03-26 08:00] VITALS: BP 99/64; PULSE 92; RESP 18; TEMP 97.7
[2023-03-26] MEDS: MULTIVITAMINS WITH MINERALS, THERAPEUTIC TABLET PO SCH (08:27)
[2023-03-26] MEDS: THIAMINE 100 MG TABLET PO SCH ×2 (08:27→16:27)
[2023-03-26] MEDS: FLUoxetine HCL 20 MG CAPSULE PO SCH (08:27)
[2023-03-26] MEDS: OMEGA-3/DHA/EPA/FISH OIL 1,000 MG CAPSULE PO SCH (08:27)
[2023-03-26] MEDS: NALTREXONE HCL 50 MG TABLET PO SCH (08:27)
[2023-03-26] MEDS: FOLIC ACID 1 MG TABLET PO SCH (08:27)
[2023-03-26] MEDS: OLANZapine 10 MG RAPDIS TABLET PO SCH (20:15)
[2023-03-26] MEDS: DIVALPROEX SODIUM 500 MG ER TABLET PO SCH (20:15)
[2023-03-26] MEDS: MELATONIN 5 MG TABLET PO SCH (20:15)
[2023-03-26 22:39] VITALS: BP 132/69; PULSE 89; RESP 19; TEMP 98.1; O2SAT 99
[2023-03-27 08:00] VITALS: BP 108/61; PULSE 103; RESP 18; TEMP 98.1; O2SAT 98
[2023-03-27] MEDS: THIAMINE 100 MG TABLET PO SCH ×2 (10:17→17:13)
[2023-03-27] MEDS: FOLIC ACID 1 MG TABLET PO SCH (10:17)
[2023-03-27] MEDS: OMEGA-3/DHA/EPA/FISH OIL 1,000 MG CAPSULE PO SCH (10:20)
[2023-03-27] MEDS: NALTREXONE HCL 50 MG TABLET PO SCH (10:20)
[2023-03-27] MEDS: MULTIVITAMINS WITH MINERALS, THERAPEUTIC TABLET PO SCH (10:20)
[2023-03-27] MEDS: OLANZapine 10 MG RAPDIS TABLET PO SCH (20:45)
[2023-03-27] MEDS: DIVALPROEX SODIUM 500 MG ER TABLET PO SCH (20:45)
[2023-03-27] MEDS: MELATONIN 5 MG TABLET PO SCH (20:45)
[2023-03-27 22:17] VITALS: BP 122/67; PULSE 77; RESP 18; TEMP 98; O2SAT 96
[2023-03-28 08:15] VITALS: BP 121/70; PULSE 99; RESP 18; TEMP 97.4; O2SAT 100
[2023-03-28] MEDS: OMEGA-3/DHA/EPA/FISH OIL 1,000 MG CAPSULE PO SCH (08:47)
[2023-03-28] MEDS: THIAMINE 100 MG TABLET PO SCH ×2 (08:47→16:49)
[2023-03-28] MEDS: MULTIVITAMINS WITH MINERALS, THERAPEUTIC TABLET PO SCH (08:47)
[2023-03-28] MEDS: NALTREXONE HCL 50 MG TABLET PO SCH (08:47)
[2023-03-28] MEDS: FOLIC ACID 1 MG TABLET PO SCH (08:47)
[2023-03-28] MEDS ORDERED: FLUoxetine HCL 20 MG CAPSULE PO SCH (09:00)
[2023-03-28] MEDS: MELATONIN 5 MG TABLET PO SCH (20:02)
[2023-03-28] MEDS: DIVALPROEX SODIUM 500 MG ER TABLET PO SCH (20:02)
[2023-03-28] MEDS: OLANZapine 10 MG RAPDIS TABLET PO SCH (20:02)
[2023-03-28 21:36] VITALS: BP 102/59; PULSE 96; RESP 19; TEMP 98.4; O2SAT 96
[2023-03-29 08:50] VITALS: BP 119/69; PULSE 101; RESP 18; TEMP 97.4; O2SAT 99
[2023-03-29] MEDS: FLUoxetine HCL 20 MG CAPSULE PO SCH (09:20)
[2023-03-29] MEDS: OMEGA-3/DHA/EPA/FISH OIL 1,000 MG CAPSULE PO SCH (09:20)
[2023-03-29] MEDS: MULTIVITAMINS WITH MINERALS, THERAPEUTIC TABLET PO SCH (09:20)
[2023-03-29] MEDS: THIAMINE 100 MG TABLET PO SCH ×2 (09:20→16:25)
[2023-03-29] MEDS: NALTREXONE HCL 50 MG TABLET PO SCH (09:20)
[2023-03-29] MEDS: FOLIC ACID 1 MG TABLET PO SCH (09:22)
[2023-03-29 20:09] VITALS: BP 104/62; PULSE 73; RESP 18; TEMP 97.6
[2023-03-29] MEDS: DIVALPROEX SODIUM 500 MG ER TABLET PO SCH (21:06)
[2023-03-29] MEDS: OLANZapine 10 MG RAPDIS TABLET PO SCH (21:06)
[2023-03-29] MEDS: MELATONIN 5 MG TABLET PO SCH (21:06)
[2023-03-29] MEDS ORDERED: ESZOPICLONE 3 MG TABLET PO PRN (21:30)
[2023-03-29] MEDS ORDERED: GABAPENTIN 300 MG CAPSULE PO PRN (21:30)
[2023-03-30 09:05] VITALS: BP 114/72; PULSE 99; RESP 18; TEMP 97.4; O2SAT 99
[2023-03-30] MEDS: OMEGA-3/DHA/EPA/FISH OIL 1,000 MG CAPSULE PO SCH (10:31)
[2023-03-30] MEDS: MULTIVITAMINS WITH MINERALS, THERAPEUTIC TABLET PO SCH (10:31)
[2023-03-30] MEDS: FLUoxetine HCL 20 MG CAPSULE PO SCH (10:32)
[2023-03-30] MEDS: NALTREXONE HCL 50 MG TABLET PO SCH (10:33)
[2023-03-30] MEDS ORDERED: NALT50TA PO (12:59)
[2023-03-30] MEDS ORDERED: OLAN10TA26 PO (12:59)
[2023-03-30] MEDS ORDERED: FLUO20CA36 PO (12:59)
[2023-03-30] MEDS ORDERED: OMEG-135 PO (12:59)
[2023-03-30] MEDS ORDERED: DIVA500T69 PO (12:59)
[2023-03-30] MEDS ORDERED: MELA5TAB40 PO (12:59)
== END 2023-03-30 14:00 | disposition home or self-care (01) | DRG 750 ==
LOC: EMS 12:34 → 3EX 16:50 → 3EI 03-20 10:38
PROVIDERS: ADMIT Psychiatry & Neurology Psychiatry; ATTEND Psychiatry & Neurology Psychiatry
DX: F25.9 Schizoaffective disorder, unspecified (principal); R45.851 Suicidal ideations; F17.210 Nicotine dependence, cigarettes, uncomplicated; Z20.822 Contact with and (suspected) exposure to COVID-19; J44.9 Chronic obstructive pulmonary disease, unspecified; F19.20 Other psychoactive substance dependence, uncomplicated; F32.A Depression, unspecified; F10.20 Alcohol dependence, uncomplicated; Z79.899 Other long term (current) drug therapy
CPT/HCPCS: 80053; 80061; 80164; 83036; 84132; 84439; 84443; 85025; 86592; 99285; G0378; G0480; Q9967